=== PATIENT | male | born 1945 | race Caucasian/White ===

== ENCOUNTER → 2023-02-08 | Outpatient (REF) | payer OTHER | LOC: M SFHCDERM 17:40 | PROVIDERS: ATTEND Nurse Practitioner Family | DX: C44.329 Squamous cell carcinoma of skin of other parts of face (principal) ==

== ENCOUNTER → 2024-07-17 | Outpatient (REF) | payer OTHER, MEDICARE | LOC: M SFHCDERM 11:04 | PROVIDERS: ATTEND Nurse Practitioner Family | DX: C44.319 Basal cell carcinoma of skin of other parts of face (principal) ==